=== PATIENT | female | born 1995 | race Caucasian/White ===

== ENCOUNTER 2019-05-29 15:08 | Emergency (ER) | payer SELFPAY ==
--- NOTE | 2019-05-29 17:01 | ER Document Report ---
ED Medical Screen (RME) - General Chief Complaint: Upper Abdominal Pain Stated Complaint: UPPER ABDOMINAL PAIN/VOMITING/HARD TO BREATH Time Seen by Provider: 05/29/19 16:51 Notes: Patient is a 23-year-old female presents emergency department with a chief complaint of upper abdominal pain. Patient reports she has had intermittent right upper quadrant pain for about 1 week. She reports this does radiate into her right flank area. Reports that this is worse with eating. Does state anytime she attempts to eat food she vomits. Patient has been able to tolerate some liquids. Patient reports urinary hesitancy. Patient reports loose stools. Patient has had her appendix removed. Still has her gallbladder. TRAVEL OUTSIDE OF THE [place] IN LAST 30 DAYS: No - Related Data Allergies/Adverse Reactions: asparagus Allergy (Verified 05/29/19 16:49) hydromorphone [From Dilaudid] Allergy (Verified 05/29/19 16:49) Penicillins Allergy (Verified 05/29/19 16:49) Past Medical History - Social History Chew tobacco use (# tins/day): No Frequency of alcohol use: None Drug Abuse: Marijuana Physical Exam - Vital signs Vitals: Temp Pulse Resp BP Pulse Ox 98.2 F 94 16 131/66 H 98 05/29/19 16:05 05/29/19 16:05 05/29/19 16:05 05/29/19 16:05 05/29/19 16:05 - Abdominal Inspection: Normal Distension: No distension Bowel sounds: Normal Tenderness: Tender - Right upper quadrant tenderness with palpation. Organomegaly: No organomegaly Course - Re-evaluation Re-evalutation: 05/29/19 17:01 I have greeted and performed a rapid initial assessment of this patient. A comprehensive ED assessment and evaluation of the patient, analysis of test results and completion of the medical decision making process will be conducted by additional ED providers. - Vital Signs Vital signs: Temp Pulse Resp BP Pulse Ox 98.2 F 94 16 131/66 H 98 05/29/19 16:05 05/29/19 16:05 05/29/19 16:05 05/29/19 16:05 05/29/19 16:05
[2019-05-29 18:38] LABS: ABSOLUTE MONOCYTES (AUTO) 0.2 10^3/uL (0.1-1.4); ABSOLUTE NEUT (AUTO) 5.3 10^3/uL (1.7-8.2); BASOPHILS % (AUTO) 0.3 % (0-2); EOSINOPHILS % (AUTO) 0.2 % (0-6); HEMATOCRIT 41.3 % (36.0-47.0); HEMOGLOBIN 14.1 g/dL (12.0-15.5); LYMPHOCYTES % (AUTO) 15.9 % (13-45); MEAN CORPUSCULAR HEMOGLOBIN 28.6 pg (27.0-33.4); MEAN CORPUSCULAR HGB CONC 34.2 g/dL (32.0-36.0); MEAN CORPUSCULAR VOLUME 84 fl (80-97); MONOCYTES % (AUTO) 3.4 % (3-13); PLATELET COUNT 175 10^3/uL (150-450); RED BLOOD COUNT 4.93 10^6/uL (3.72-5.28); RED CELL DISTRIBUTION WIDTH 12.9 % (11.5-14.0); SEGMENTED NEUTROPHILS % (AUTO) 80.2 % (42-78); TOTAL CELLS COUNTED % (AUTO) 100 %; WHITE BLOOD COUNT 6.5 10^3/uL (4.0-10.5)
--- NOTE | 2019-05-29 18:42 | RADIOLOGY REPORT (SQ) ---
EXAM DESCRIPTION: U/S ABDOMEN LIMITED W/O DOP COMPLETED DATE/TIME: 05/29/2019 6:35 pm REASON FOR STUDY: Right upper quadrant pain COMPARISON: None. TECHNIQUE: Dynamic and static grayscale images acquired of the abdomen and recorded on PACS. Additio nal selected color Doppler and spectral images recorded. LIMITATIONS: None. FINDINGS: PANCREAS: No masses. Visualized pancreatic duct normal caliber. LIVER: No masses. Echotexture normal. LIVER VASCULATURE: Normal directional flow of the main portal vein and hepatic veins. GALLBLADDER: No stones. Normal wall thickness. No pericholecystic fluid. ULTRASOUND-DETECTED SUAREZ'S SIGN: Negative. INTRAHEPATIC DUCTS AND COMMON DUCT: CBD and intrahepatic ducts normal caliber. No filling defects. INFERIOR VENA CAVA: Normal flow. AORTA: No aneurysm. RIGHT KIDNEY: Normal size. Normal echogenicity. No solid or suspicious masses. No hydronephrosis. No calcifications. PERITONEAL AND RIGHT PLEURAL SPACE: No ascites or effusions. OTHER: No other significant findings. IMPRESSION: NORMAL RIGHT UPPER QUADRANT ULTRASOUND. TECHNICAL DOCUMENTATION: JOB ID: [id number] 2010 [employer]- All Rights Reserved Reading location - IP/workstation name: [email or web address]
[2019-05-29 18:43] LABS: APPEARANCE,URINE CLEAR; BILIRUBIN,URINE NEGATIVE (NEGATIVE); COLOR,URINE YELLOW; GLUCOSE, URINE NEGATIVE (NEGATIVE); KETONES,URINE 80 mg/dL (NEGATIVE); LEUKOCYTE ESTERASE,URINE NEGATIVE (NEGATIVE); NITRITE,URINE NEGATIVE (NEGATIVE); PROTEIN,URINE 30 mg/dL (NEGATIVE); URINE SPECIFIC GRAVITY 1.028; UROBILINOGEN,URINE NEGATIVE mg/dL (<2.0)
[2019-05-29 18:58] LABS: ALBUMIN 5.3 g/dL (3.5-5.0); ALKALINE PHOSPHATASE 63 U/L (38-126); ANION GAP 14 (5-19); ASPARTATE AMINO TRANSFERASE 24 U/L (14-36); BILIRUBIN,DIRECT 0.2 mg/dL (0.0-0.4); BILIRUBIN,TOTAL 0.5 mg/dL (0.2-1.3); BLOOD UREA NITROGEN 17 mg/dL (7-20); CARBON DIOXIDE 24 mmol/L (22-30); CHLORIDE 105 mmol/L (98-107); GLUCOSE 90 mg/dL (75-110); POTASSIUM 3.8 mmol/L (3.6-5.0); TOTAL PROTEIN 8.3 g/dL (6.3-8.2)
[2019-05-29] MEDS ORDERED: ONDANSETRON HCL INJ/PF 4 MG/2 ML SDV IV ONE (19:00)
[2019-05-29] MEDS ORDERED: NORMAL SALINE 1000 ML 1,000 ML IV ONE (19:00)
[2019-05-29] MEDS ORDERED: ONDANSETRON ODT 4 MG TAB (6 TAB/ER DISP) PO PRN (21:50)
[2019-05-29 22:13] VITALS: BP 112/60
[2019-05-29] MEDS ORDERED: HYDROCODONE/ACETAMINOPHEN 5-325 MG (6 TAB/ER DISP) PO PRN (22:23)
--- NOTE | 2019-05-29 22:26 | ER Document Report ---
ED GI/ - General Chief Complaint: Upper Abdominal Pain Stated Complaint: UPPER ABDOMINAL PAIN/VOMITING/HARD TO BREATH Time Seen by Provider: 05/29/19 16:51 Primary Care Provider: [facility] [Provider Group] - Follow up as needed Mode of Arrival: Ambulatory Information source: Patient Notes: GANGA HPI: Patient is a 23-year-old female presents emergency department with a chief complaint of upper abdominal pain. Patient reports she has had intermittent right upper quadrant pain for about 1 week. She reports this does radiate into her right flank area. Reports that this is worse with eating. Does state anytime she attempts to eat food she vomits. Patient has been able to tolerate some liquids. Patient reports urinary hesitancy. Patient reports loose stools. Patient has had her appendix removed. Still has her gallbladder. TRAVEL OUTSIDE OF THE [place] IN LAST 30 DAYS: No - Related Data Allergies/Adverse Reactions: asparagus Allergy (Verified 05/29/19 16:49) hydromorphone [From Dilaudid] Allergy (Verified 05/29/19 16:49) Penicillins Allergy (Verified 05/29/19 16:49) Past Medical History - General Information source: Patient - Social History Smoking Status: Never Smoker Chew tobacco use (# tins/day): No Frequency of alcohol use: None Drug Abuse: Marijuana Family History: Reviewed & Not Pertinent Patient has suicidal ideation: No Patient has homicidal ideation: No - Medical History Medical History: Negative Past Surgical History: Reports: Hx Appendectomy, Hx Bowel Surgery - small intestine tortion Review of Systems - Review of Systems Constitutional: No symptoms reported EENT: No symptoms reported Cardiovascular: No symptoms reported Respiratory: No symptoms reported Gastrointestinal: Abdominal pain, Nausea, Vomiting Genitourinary: No symptoms reported Female Genitourinary: No symptoms reported Musculoskeletal: No symptoms reported Skin: No symptoms reported Hematologic/Lymphatic: No symptoms reported Neurological/Psychological: No symptoms reported Physical Exam - Vital signs Vitals: Temp Pulse Resp BP Pulse Ox 98.2 F 94 16 131/66 H 98 05/29/19 16:05 05/29/19 16:05 05/29/19 16:05 05/29/19 16:05 05/29/19 16:05 - Notes Notes: PHYSICAL EXAMINATION: GENERAL: Well-appearing, well-nourished and in no acute distress. HEAD: Atraumatic, normocephalic. EYES: Pupils equal round and reactive to light, extraocular movements intact, conjunctiva are normal. ENT: Nares patent, oropharynx clear without exudates. Moist mucous membranes. NECK: Normal range of motion, supple without lymphadenopathy LUNGS: Breath sounds clear to auscultation bilaterally and equal. No wheezes r ales or rhonchi. HEART: Regular rate and rhythm without murmurs ABDOMEN: Soft, nondistended abdomen. Tenderness to palpation in the right upper quadrant and epigastric region. No guarding, no rebound. No masses appreciated. Female : deferred Musculoskeletal: Normal range of motion, no pitting or edema. No cyanosis. NEUROLOGICAL: Cranial nerves grossly intact. Normal speech, normal gait. Normal sensory, motor exams PSYCH: Normal mood, normal affect. SKIN: Warm, Dry, normal turgor, no rashes or lesions noted. Course - Re-evaluation Re-evalutation: Laboratory 05/29/19 05/29/19 05/29/19 18:00 18:00 18:00 WBC 6.5 RBC 4.93 Hgb 14.1 Hct 41.3 MCV 84 MCH 28.6 MCHC 34.2 RDW 12.9 Plt Count 175 Lymph % (Auto) 15.9 [place] % (Auto) 3.4 Eos % (Auto) 0.2 Baso % (Auto) 0.3 Absolute Neuts (auto) 5.3 Absolute Lymphs (auto) 1.0 Absolute Monos (auto) 0.2 Absolute Eos (auto) 0.0 Absolute Basos (auto) 0.0 Seg Neutrophils % 80.2 H Sodium 142.7 Potassium 3.8 Chloride 105 Carbon Dioxide 24 Anion Gap 14 BUN 17 Creatinine 0.56 Est GFR ( Amer) > 60 Est GFR (MDRD) Non-Af > 60 Glucose 90 Calcium 10.0 Total Bilirubin 0.5 Direct Bilirubin 0.2 Neonat Total Bilirubin Not Reportable Neonat Direct Bilirubin Not Reportable Neonat Indirect Bili Not Reportable AST 24 ALT 11 Alkaline Phosphatase 63 Total Protein 8.3 H Albumin 5.3 H Lipase 61.4 Urine Color YELLOW Urine Appearance CLEAR Urine pH 6.0 Ur Specific [place] 1.028 Urine Protein 30 H Urine Glucose (UA) NEGATIVE Urine Ketones 80 H Urine Blood NEGATIVE Urine Nitrite NEGATIVE Urine Bilirubin NEGATIVE Urine Urobilinogen NEGATIVE Ur Leukocyte Esterase NEGATIVE Urine WBC (Auto) 0 Urine RBC (Auto) 2 U Hyaline Cast (Auto) 1 Squamous Epi Cells Auto 1 Urine Mucus (Auto) MANY Urine Ascorbic Acid 20 H Urine HCG, Qual NEGATIVE Abdomen Ultrasound 05/29/19 17:00 IMPRESSION: NORMAL RIGHT UPPER QUADRANT ULTRASOUND. Patient's work-up today has been unremarkable. Patient appears well, nontoxic. She does have some tenderness to the epigastric area and right upper quadrant. She likely needs a HIDA scan. This was discussed with patient, patient will be treated symptomatically, she will follow-up with primary care for consideration of a HIDA scan. Patient invited to return to the emergency department if her symptoms worsen in any way. Patient verbalized understanding and agreement with this plan. - Vital Signs Vital signs: Temp Pulse Resp BP Pulse Ox 98.0 F 86 16 112/60 99 05/29/19 22:59 05/29/19 22:59 05/29/19 22:59 05/29/19 22:59 05/29/19 22:59 - Laboratory Result Diagrams: 05/29/19 18:00 05/29/19 18:00 Laboratory results interpreted by me: 05/29/19 05/29/19 05/29/19 18:00 18:00 18:00 Seg Neutrophils % 80.2 H Total Protein 8.3 H Albumin 5.3 H Urine Protein 30 H Urine Ketones 80 H Urine Ascorbic Acid 20 H Discharge - Discharge Clinical Impression: Right upper quadrant abdominal pain Nausea and vomiting Qualifiers: Vomiting type: unspecified Vomiting Intractability: non-intractable Qualified Code(s): R11.2 - Nausea with vomiting, unspecified Condition: Stable Disposition: HOME, SELF-CARE Additional Instructions: Your work-up today in the emergency department was unremarkable. Your lab work and ultrasound did not show a clear cause of your pain. Based on your symptoms I believe there is something going on with your gallbladder although this is not evident on the ultrasound. It is recommend that you obtain a HIDA scan. This can be done on an outpatient basis and will need to be ordered by an outpatient provider. On page 2 of this packet there is information regarding the [facility]. Please call them tomorrow to find out what you need to do to set up an appointment. In the meanwhile eating low fat, bland diet. No spicy greasy or fried foods. Use the nausea medication as needed. Take the pain medication as directed. Return to the emergency department at once if you are persistently vomiting despite taking the medication, your pain worsens or you develop a fever. We are happy to reevaluate you at any time. Prescriptions: Metoclopramide HCl [Reglan 10 mg Tablet] 1 - 2 tab PO ASDIR PRN #25 tablet PRN Reason: Referrals: [facility] [Provider Group] - Follow up as needed
== END 2019-05-29 23:01 | disposition home or self-care (01) ==
LOC: ER 15:08
DX: R10.11 Right upper quadrant pain (principal); R11.2 Nausea with vomiting, unspecified; R06.02 Shortness of breath; R10.9 Unspecified abdominal pain; R39.11 Hesitancy of micturition; R19.7 Diarrhea, unspecified; R10.13 Epigastric pain; Z90.89 Acquired absence of other organs; Z88.0 Allergy status to penicillin; Z88.8 Allergy status to other drugs, medicaments and biological substances
CPT/HCPCS: 99284; 96360; 96361; 36415; 83690; 85025; 81025; 80053; 81001; 76705; J2405; J7030